=== PATIENT | female | born 1985 | race Caucasian/White ===

== ENCOUNTER 2021-01-26 12:43 | Emergency (ER) | payer OTHER ==
[2021-01-26] MEDS ORDERED: SODIUM CHLORIDE 0.9% 1,000 ML IV STA (13:19)
[2021-01-26] MEDS ORDERED: MORPHINE SULFATE 2 MG/ML SYRINGE IVP STA (13:19)
[2021-01-26] MEDS ORDERED: KETOROLAC 15 MG/ML 1 ML VIAL IVP STA (13:19)
[2021-01-26] MEDS ORDERED: ONDANSETRON 4 MG/2 ML VIAL IVP STA (13:19)
[2021-01-26 13:47] LABS: Appearance,Urine Cloudy (Clear); Bilirubin,Urine Negative (Negative); Blood,Urine Small (Negative); Color,Urine Yellow; Glucose,Urine (UA) Negative (Negative); Ketones,Urine 2+ (Negative); Leukocyte Esterase,Urine Negative (Negative); Mucus,Urine Rare /hpf; Nitrite,Urine Negative (Negative); PH, Urine 7.5 (5.0-8.0); Protein,Urine Negative (Negative); RBC,Urine 6 /hpf (0-5); Specific Gravity,Urine 1.015 (1.001-1.035); Squamous Epithelial Cell,Urine 9 /hpf (0-4); Urobilinogen,Urine <2.0 mg/dL (<2.0); WBC,Urine 2 /hpf (0-5)
[2021-01-26 13:50] LABS: Basophils % (A) 0 %; Eosinophils # (A) 0.1 k/uL (0-0.7); Eosinophils % (A) 0 %; HCT 42.4 % (34.0-46.0); HGB 14.8 gm/dL (11.4-16.0); Lymphocytes # (A) 0.9 k/uL (1.0-4.8); Lymphocytes % (A) 6 %; MCH 33.2 pg (25.0-35.0); MCHC 34.8 g/dL (31.0-37.0); MCV 95.3 fL (80.0-100.0); Mean Platelet Volume 10.4; Monocytes # (A) 0.8 k/uL (0-1.0); Monocytes % (A) 6 %; Neutrophils # (A) 13.1 k/uL (1.3-7.7); Neutrophils % (A) 87 %; Platelet Count 179 k/uL (150-450); RBC 4.45 m/uL (3.80-5.40)
[2021-01-26 13:58] LABS: ALT 10 U/L (4-34); AST 19 U/L (14-36); African American GFR (CKD) >90 (>60 ml/min/1.73 sqM); Albumin 4.5 g/dL (3.5-5.0); Alkaline Phosphatase 64 U/L (38-126); Anion Gap 13 mmol/L; Blood Urea Nitrogen 10 mg/dL (7-17); Calcium 9.8 mg/dL (8.4-10.2); Carbon Dioxide 20 mmol/L (22-30); Chloride 103 mmol/L (98-107); Glucose 89 mg/dL (74-99); Lipase 118 U/L (23-300); Non-African American GFR(CKD) >90 (>60 ml/min/1.73 sqM); Potassium 3.6 mmol/L (3.5-5.1); Sodium 136 mmol/L (137-145); Total Bilirubin 1.5 mg/dL (0.2-1.3); Total Protein 7.2 g/dL (6.3-8.2)
--- NOTE | 2021-01-26 14:24 | US ---
EXAMINATION TYPE: US renals and bladder DATE OF EXAM: 01/26/2021 COMPARISON: NONE CLINICAL HISTORY: evaluate for hydronephrosis. Hx kidney stones. Left side pain. EXAM MEASUREMENTS: Right Kidney: 12.3 x 4.8 x 4.2 cm Left Kidney: 11.1 x 5.1 x 5.0 cm Right Kidney: No hydronephrosis. mid cystic lesion = 1.6 x 1.3 x 1.0 cm Left Kidney: No hydronephrosis or masses seen Bladder: anechoic. Thickened wall- 5.4 mm Bilateral Jets not seen IMPRESSION: 1. No evidence of obstructive uropathy. 2. Mildly thickened urinary bladder black. Correlate with urinalysis for acute cystitis. 3. Small right renal cyst.
--- NOTE | 2021-01-26 14:25 | US ---
EXAMINATION TYPE: US transvaginal DATE OF EXAM: 01/26/2021 COMPARISON: NONE CLINICAL HISTORY: LLQ pain, evaluate for ovarian torsion. TECHNIQUE: Transvaginal (TV) grayscale sonographic images were obtained. Color Doppler and spectral waveform analysis were utilized. Date of LMP: 12/22/2020, EXAM MEASUREMENTS: Uterus: 9.4 x 6.0 x 4.7 cm Endometrial Stripe: 0.7 cm Right Ovary: 2.9 x 1.8 x 1.7 cm Left Ovary: 3.2 x 2.7 x 2.1 cm 1. Uterus: Anteverted wnl 2. Endometrium: wnl 3. Right Ovary: follicles 4. Left Ovary: dominant follicle Spectral, color and waveform doppler imaging shows good arterial and venous flow within the ovaries ; there is no evidence for ovarian torsion. 5. Bilateral Adnexa: peristalsing fluid filled bowel in left adnexa 6. Posterior cul-de-sac: no free fluid IMPRESSION: Unremarkable pelvic ultrasound.
[2021-01-26 14:29] VITALS: RESP 18
[2021-01-26] MEDS ORDERED: SULFAMETHOX-TMP 800-160MG 1 EACH TAB PO STA (15:01)
--- NOTE | 2021-01-26 15:01 | ED ---
General Adult HPI - General Chief complaint: Back Pain/Injury Stated complaint: possible kidney infection Time Seen by Provider: 01/26/21 12:58 Source: patient, RN notes reviewed, old records reviewed Mode of arrival: wheelchair Limitations: no limitations - History of Present Illness Initial comments: Patient is a 35-year-old female with past medical history remarkable for renal stones who presents emergency Department complaining of multiple complaints. Her primary complaint is left flank pain with radiation towards her left kidney. She describes the pain as sharp and achy. She states that last time this happened she had a kidney stone but also has had kidney infections causing this pain. She denies any vaginal bleeding or discharge. Denies any concern for STI's. Does endorse some nausea. Denies any chest pain or shortness of breath. She denies being at this time. States this is been ongoing since last night. She presents over concern for possible UTI versus renal stone. She did take a dose of a prior embolic she was on, Bactrim, that she had left over. She was having difficulty telling by mouth intake which is what brought her to the emergency department. Denies dysuria, hematuria. Denies any fevers, chills, sick contacts. endorses a few episodes of nonbilious nonbloody emesis. Denies change in BM or concern for constipation. - Related Data Previous Rx's Medication Instructions Recorded Ibuprofen [Motrin] 800 mg PO Q8H PRN 14 Days #42 tab 01/26/21 Ondansetron Odt [Zofran Odt] 4 mg PO Q8HR PRN #6 tab 01/26/21 Sulfamethox-Tmp 800-160Mg [Bactrim 1 tab PO BID 7 Days #14 tab 01/26/21 DS 800-160 mg] Tamsulosin [Flomax] 0.4 mg PO DAILY 7 Days #7 cap 01/26/21 Allergies Allergy/AdvReac Type Severity Reaction Status Date / Time No Known Allergies Allergy Verified 01/26/21 12:45 Review of Systems ROS Statement: Those systems with pertinent positive or pertinent negative responses have been documented in the HPI. Review of Systems: CONST: Denies fever EYES: Denies blurry vision ENT: Denies nasal congestion C/V: Denies Chest pain RESP: Denies shortness of breath GI: Endorses abdominal pain : Denies dysuria SKIN: Denies rash. MSK: Denies joint pain. NEURO: Denies headache ROS Other: All systems not noted in ROS Statement are negative. Past Medical History Past Medical History: No Reported History History of Any Multi-Drug Resistant Organisms: None Reported Past Surgical History: No Surgical Hx Reported Past Psychological History: Anxiety Smoking Status: Current every day smoker Past Alcohol Use History: None Reported Past Drug Use History: Marijuana General Exam - General Exam Comments Initial Comments: General: Appears in mild distress secondary to pain. HEAD: Normal with no signs of head trauma. EYES: PERRLA, EOMI, conjunctiva normal, no discharge. ENT: Hearing grossly intact, normal oropharynx. Patient is mildly dry mucous membranes. RESPIRATORY: Clear breath sounds bilaterally. No wheezes, rales, or rhonchi. C/V: Regular rate and rhythm. S1 and S2 auscultated, no edema, peripheral pulses 2+ and intact throughout ABD: Abdomen is nondistended, soft. She is tender to palpation in the left flank region as well as left lower quadrant/adnexal region. There is no rebound tenderness. Minimal suprapubic tenderness. No peritoneal signs. EXT: Normal range of motion, no obvious deformity SKIN: No rashes or lesions observed on exposed skin. NEURO: Alert and oriented 4. No focal deficits. Limitations: no limitations Course Vital Signs 01/26/21 01/26/21 01/26/21 12:45 14:28 15:17 Temperature 98.2 F 98 F Pulse Rate 95 72 67 Respiratory 20 18 18 Rate Blood Pressure 107/75 110/62 108/74 O2 Sat by Pulse 100 99 99 Oximetry Medical Decision Making - Medical Decision Making Based on the patient's presentation and physical exam, I'm concerned for possible urinary pathology for current symptoms including UTI versus renal stone. However cannot rule out the possibility of ovarian torsion either. Therefore we will obtain a pelvic as well as renal ultrasound to assess for torsion as well as hydronephrosis if there is a significantly large stone. We will obtain urinary studies as well as basic laboratory studies and abdominal labs. Patient will be symptomatically treated with 1 L fluid bolus, IV Toradol, morphine, Zofran. She was in agreement this plan. Patient's lavatory studies are remarkable for a mildly elevated leukocytosis of 15.0 which may be reactive for the signs of a mild infectious process. Patient is a very mild decreased bicarb at 20. Urinalysis is remarkable for what is likely a contaminated catch. Patient's transvaginal ultrasound revealed no signs of ovarian torsion. Was an unremarkable pelvic ultrasound. Patient's renal ultrasound showed no signs of hydronephrosis or obstructive uropathy. There is concern for possible cystitis. There is a small right renal cyst as well. She is not . On reevaluation, patient has not tolerated by mouth intake. She states she feels better. Pain is improved. Nausea is improved. I reviewed her laboratory studies as well as imaging with her. Due to her symptoms, US findings, as well as her symptomatic UTI with abd pain and Nausea/vomiting, we will treat her as a UTI despite a contaminated catch. This includes Bactrim. She may have a renal stone, she does have some mild hematuria in her urinalysis and I discussed with her the possibility of treatment with Flomax over the possibility of a urinary stone that is passing, which she agreed with. She'll be given ibuprofen for pain management as well as Zofran ODT to go home with. I do believe it is safer to be discharged from this time. She was in agreement with the plan. I will provide the patient with a prescription for Bactrim DS twice a day for 7 days, Zofran ODT, ibuprofen, Flomax daily for 7 days. I instructed the patient to follow up with their PCP in the next 3 days. I provided contact information for follow up with [facility] for PCP. I explained that the patient should return to the emergency department if they experience any worsening symptoms. Strict return precautions were discussed with the patient. The patient expressed understanding of these instructions. I answered all questions that the patient had. The patient was discharged home in fair condition with their prescriptions and follow up information. - Lab Data Result diagrams: 01/26/21 13:35 01/26/21 13:35 Lab Results 01/26/21 01/26/21 01/26/21 Range/Units 13:35 13:35 13:35 WBC 15.0 H (3.8-10.6) k/uL RBC 4.45 (3.80-5.40) m/uL Hgb 14.8 (11.4-16.0) gm/dL Hct 42.4 (34.0-46.0) % MCV 95.3 (80.0-100.0) fL MCH 33.2 (25.0-35.0) pg MCHC 34.8 (31.0-37.0) g/dL RDW 12.0 (11.5-15.5) % Plt Count 179 (150-450) k/uL MPV 10.4 Neutrophils % 87 % Lymphocytes % 6 % Monocytes % 6 % Eosinophils % 0 % Basophils % 0 % Neutrophils # 13.1 H (1.3-7.7) k/uL Lymphocytes # 0.9 L (1.0-4.8) k/uL Monocytes # 0.8 (0-1.0) k/uL Eosinophils # 0.1 (0-0.7) k/uL Basophils # 0.0 (0-0.2) k/uL Sodium 136 L (137-145) mmol/L Potassium 3.6 (3.5-5.1) mmol/L Chloride 103 (98-107) mmol/L Carbon Dioxide 20 L (22-30) mmol/L Anion Gap 13 mmol/L BUN 10 (7-17) mg/dL Creatinine 0.69 (0.52-1.04) mg/dL Est GFR (CKD-EPI)AfAm >90 (>60 ml/min/1.73 sqM) Est GFR (CKD-EPI)NonAf >90 (>60 ml/min/1.73 sqM) Glucose 89 (74-99) mg/dL Calcium 9.8 (8.4-10.2) mg/dL Total Bilirubin 1.5 H (0.2-1.3) mg/dL AST 19 (14-36) U/L ALT 10 (4-34) U/L Alkaline Phosphatase 64 (38-126) U/L Total Protein 7.2 (6.3-8.2) g/dL Albumin 4.5 (3.5-5.0) g/dL Lipase 118 (23-300) U/L Urine Color Yellow Urine Appearance Cloudy H (Clear) Urine pH 7.5 (5.0-8.0) Ur Specific Mathews 1.015 (1.001-1.035) Urine Protein Negative (Negative) Urine Glucose (UA) Negative (Negative) Urine Ketones 2+ H (Negative) Urine Blood Small H (Negative) Urine Nitrite Negative (Negative) Urine Bilirubin Negative (Negative) Urine Urobilinogen <2.0 (<2.0) mg/dL Ur Leukocyte Esterase Negative (Negative) Urine RBC 6 H (0-5) /hpf Urine WBC 2 (0-5) /hpf Ur Squamous Epith Cells 9 H (0-4) /hpf Urine Mucus Rare H (None) /hpf Urine HCG, Qual (Not Detectd) 01/26/21 Range/Units 13:35 WBC (3.8-10.6) k/uL RBC (3.80-5.40) m/uL Hgb (11.4-16.0) gm/dL Hct (34.0-46.0) % MCV (80.0-100.0) fL MCH (25.0-35.0) pg MCHC (31.0-37.0) g/dL RDW (11.5-15.5) % Plt Count (150-450) k/uL MPV Neutrophils % % Lymphocytes % % Monocytes % % Eosinophils % % Basophils % % Neutrophils # (1.3-7.7) k/uL Lymphocytes # (1.0-4.8) k/uL Monocytes # (0-1.0) k/uL Eosinophils # (0-0.7) k/uL Basophils # (0-0.2) k/uL Sodium (137-145) mmol/L Potassium (3.5-5.1) mmol/L Chloride (98-107) mmol/L Carbon Dioxide (22-30) mmol/L Anion Gap mmol/L BUN (7-17) mg/dL Creatinine (0.52-1.04) mg/dL Est GFR (CKD-EPI)AfAm (>60 ml/min/1.73 sqM) Est GFR (CKD-EPI)NonAf (>60 ml/min/1.73 sqM) Glucose (74-99) mg/dL Calcium (8.4-10.2) mg/dL Total Bilirubin (0.2-1.3) mg/dL AST (14-36) U/L ALT (4-34) U/L Alkaline Phosphatase (38-126) U/L Total Protein (6.3-8.2) g/dL Albumin (3.5-5.0) g/dL Lipase (23-300) U/L Urine Color Urine Appearance (Clear) Urine pH (5.0-8.0) Ur Specific Mathews (1.001-1.035) Urine Protein (Negative) Urine Glucose (UA) (Negative) Urine Ketones (Negative) Urine Blood (Negative) Urine Nitrite (Negative) Urine Bilirubin (Negative) Urine Urobilinogen (<2.0) mg/dL Ur Leukocyte Esterase (Negative) Urine RBC (0-5) /hpf Urine WBC (0-5) /hpf Ur Squamous Epith Cells (0-4) /hpf Urine Mucus (None) /hpf Urine HCG, Qual Not Detected (Not Detectd) Disposition Clinical Impression: UTI (urinary tract infection), Hematuria, Abdominal pain, Nausea and vomiting Disposition: HOME SELF-CARE Condition: Fair Instructions (If sedation given, give patient instructions): Kidney Stones (ED), Urinary Tract Infection in Women (ED), Abdominal Pain (ED) Prescriptions: Sulfamethox-Tmp 800-160Mg [Bactrim DS 800-160 mg] 1 tab PO BID 7 Days #14 tab Tamsulosin [Flomax] 0.4 mg PO DAILY 7 Days #7 cap Ibuprofen [Motrin] 800 mg PO Q8H PRN 14 Days #42 tab PRN Reason: Pain Ondansetron Odt [Zofran Odt] 4 mg PO Q8HR PRN #6 tab PRN Reason: Nausea Is patient prescribed a controlled substance at d/c from ED?: No Referrals: None,Stated [REFERRING] - 1-2 days Chantale Paniagua DO [Doctor of Osteopathic Medicine] - 1-2 days
[2021-01-26 15:20] VITALS: BP 108/74; PULSE 67; TEMP 98
== END 2021-01-26 15:21 | disposition home or self-care (01) ==
LOC: EC 12:43
DX: N39.0 Urinary tract infection, site not specified (principal); R11.2 Nausea with vomiting, unspecified; M54.9 Dorsalgia, unspecified; F17.200 Nicotine dependence, unspecified, uncomplicated
CPT/HCPCS: 36415; 80053; 83690; 85025; 81001; 81025; 93975; 76830; 76770; 99284; 96374; 96375; 96361; J2405; J2270; J1885